=== PATIENT | male | born 1940 | race Caucasian/White ===

== ENCOUNTER 2016-06-29 17:05 | Inpatient (IN) | payer OTHER ==
[~2016-06-29] VITALS: Ht 172.7 cm; Wt 83.9 kg
[~2016-06-29 17:05] MED LIST: ADVAIR HFA120 INHALA IH; AMBIEN10 MG PO; ATENOLOL50 MG PO; BENADRYL25 MG PO; CENTRUM SILVER1 EAC3 PO; CLOTRIMAZOLE-BE15 GM TP; ESOMEPRAZOLE MA40 MG PO; FUROSEMIDE40 MG PO; GLIMEPIRIDE2 MG PO; GLUCOPHAGE500 MG PO; K-DUR20 MEQ PO; LASIX20 MG PO; LEVAQUIN500 MG PO; LEVOFLOXACIN750 MG PO; LOSARTAN POTASS50 MG PO; LOW DOSE ASPIRI81 M1 PO; MOTRIN IB200 MG PO; PREDNISONE50 MG PO; PROAIR HFA8.5 GM IH; VYTORIN 10/41 TABLET PO
[2016-06-29 17:48] LABS: HEMATOCRIT 40.6 % (38.0-50.0); MCH 22.7 PG (29.0-34.0); MCHC 28.6 G/DL (30.0-36.0); MCV 79.5 FL (86-99); MEAN PLAT.VOLUME 9.6 uM^3 (9.0-12.4); PLATELET COUNT 448 K/uL (156-360); RBC DIS.WIDTH-CV 19.3 % (11.8-14.6); RBC DIS.WIDTH-SD 53.2 % (39-53); RED BLOOD COUNT 5.11 M/uL (4.00-5.50); WHITE BLOOD COUNT 10.6 K/uL (4.1-10.2)
[2016-06-29 18:13] LABS: CHLORIDE 101 mEq/L (99-109); POTASSIUM 4.1 mEq/L (3.7-5.4); SODIUM 139 mEq/L (136-147)
[2016-06-29 18:15] LABS: GLUCOSE 73 mg/dL (70-99)
[2016-06-29 18:16] LABS: ANION GAP 12 MEQ/L (2-14)
[2016-06-29 18:19] LABS: GFR ESTIMATE (CALCULATED) > 59 mL/min/
[2016-06-29 18:20] LABS: UREA NITROGEN (BUN) 11 mg/dL (9-23)
[2016-06-29 19:44] LABS: TROP-I INTERPRETATION NEGATIVE; TROPONIN-I 0.05 ng/mL (0.0-0.30)
[2016-06-29] MEDS ORDERED: FUROSEMIDE40 MG PO (20:05)
[2016-06-29] MEDS ORDERED: KLOR-CON M2020 MEQ PO (20:05)
[2016-06-29] MEDS ORDERED: MIRTAZAPINE15 MG PO (20:06)
[2016-06-29 21:13] LABS: BASE EXCESS 5.9 mEq/L (-3 to +3); BICARBONATE 34.3 mEq/L (22-26); CARBOXY HGB 3.8 % (0-5); METHEMOGLOBIN 0.6 % (0-1.5); PCO2 73 mm Hg (35-45); PO2 78 mm Hg (80-100)
[2016-06-29 21:14] LABS: SITE RR; pH 7.28 (7.35-7.45)
[2016-06-29 21:15] LABS: COMMENTS - BLOOD GASES A+C+; DEVICE NC; O2 FLOW 2 L/MIN
[2016-06-29 22:29] LABS: BASE EXCESS 3.7 mEq/L (-3 to +3); BICARBONATE 31.7 mEq/L (22-26); CARBOXY HGB 2.2 % (0-5); METHEMOGLOBIN 0.9 % (0-1.5)
[2016-06-29 22:30] LABS: COMMENTS - BLOOD GASES A+C+; FI02 21 %; PCO2 66 mm Hg (35-45); PO2 57 mm Hg (80-100); SITE LR; pH 7.29 (7.35-7.45)
[2016-06-29 23:27] LABS: ADD MIUA? YES; BILIRUBIN NEGATIVE; BLOOD NEGATIVE; COLOR YELLOW ((YELLOW)); GLUCOSE (STRIP) NEGATIVE; KETONES NEGATIVE; LEUKOCYTES NEGATIVE; NITRITE NEGATIVE; PROTEIN (STRIP) 30; SPECIFIC GRAVITY 1.014 (1.000-1.030); UROBILINOGEN 0.2 MG/DL (0.2-1.0)
[2016-06-29 23:35] LABS: BACTERIA NONE SEEN /HPF; EPITHELIAL CELLS NONE SEEN /HPF; HYALINE CASTS 0-5 /LPF; MUCUS TRACE /LPF; RED BLOOD CELLS 0-5 /HPF (0-5); UCUL ADDED? NO; WHITE BLOOD CELLS 0-5 /HPF (0-5)
[2016-06-30] VITALS (24 sets, daily range): BP systolic 90–144; BP diastolic 44–76
[2016-06-30 01:06] LABS: BASE EXCESS 4.6 mEq/L (-3 to +3); BICARBONATE 32.5 mEq/L (22-26); CARBOXY HGB 2.1 % (0-5); METHEMOGLOBIN 1.4 % (0-1.5); PCO2 66 mm Hg (35-45); PO2 62 mm Hg (80-100)
[2016-06-30 01:07] LABS: SITE LR
[2016-06-30 01:08] LABS: DEVICE NC; O2 FLOW 1 L/MIN
[2016-06-30 02:03] LABS: METH RESISTANT S AUREUS PCR NEGATIVE (NEGATIVE)
[2016-06-30 02:12] LABS: PROBE CHECK PASS; SPECIMEN PROCESSING CONTROL PASS
[2016-06-30 05:53] LABS: POINT-OF-CARE METER ID UU13113803; POINT-OF-CARE USER ID PHATLC
[2016-06-30 06:25] LABS: INTER. NORMALIZED RATIO 1.1; PROTHROMBIN TIME 11.4 (9.2-11.2); PTT 30.8 (25-32)
[2016-06-30 06:28] LABS: ANION GAP 10 MEQ/L (2-14); CHLORIDE 103 MEQ/L (99-109); MAGNESIUM 1.9 mg/dl (1.3-2.7); POTASSIUM 4.2 MEQ/L (3.7-5.4); SAMPLE HEMOLYSIS CHECK 0; SAMPLE ICTERIC CHECK 0; SAMPLE LIPEMIA CHECK 0; SODIUM 143 MEQ/L (136-147); TOTAL BILIRUBIN 0.2 MG/DL (0.0-1.0)
[2016-06-30 06:33] LABS: ALKALINE PHOSPHATASE 60 IU/L (3-129); GFR ESTIMATE (CALCULATED) > 59 mL/min/; GLUCOSE 86 mg/dL (70-99); UREA NITROGEN (BUN) 11 mg/dL (9-23)
[2016-06-30 06:51] LABS: EOSINOPHIL (%) 0.3 % (0-5); HEMATOCRIT 38.3 % (38.0-50.0); IMMATURE GRANULOCYTE (%) 0.7 % (0.0-0.7); IMMATURE GRANULOCYTE COUNT 0.1 K/uL; INSTRUMENT ABS NEUTROPHIL CT 8.3 K/uL; LYMPHOCYTE COUNT 0.9 K/uL (1.0-2.8); MCH 22.8 PG (29.0-34.0); MCHC 27.9 G/DL (30.0-36.0); MCV 81.5 FL (86-99); MONOCYTE COUNT 0.3 K/uL (0-0.8); NEUTROPHIL (%) 86.7 % (45-76); NEUTROPHIL COUNT 8.3 K/uL (1.8-6.4); PLATELET COUNT 372 K/uL (156-360); RBC DIS.WIDTH-CV 18.7 % (11.8-14.6); RBC DIS.WIDTH-SD 54.7 % (39-53); WHITE BLOOD COUNT 9.6 K/uL (4.1-10.2)
[2016-06-30 12:52] LABS: POINT-OF-CARE METER ID UU13113803
[2016-06-30 13:46] LABS: BASE EXCESS 2.2 mEq/L (-3 to +3); BICARBONATE 30.7 mEq/L (22-26); COMMENTS - BLOOD GASES A+C+; DEVICE 840; FI02 50 %; MECHANICAL RATE 14 resp/min; METHEMOGLOBIN 1.6 % (0-1.5); MODE N/V SIMV; PCO2 70 mm Hg (35-45); PEEP 5 CM/H20; PO2 103 mm Hg (80-100); PRES. SUPPORT 15 CM/H2O; SITE LR; TOTAL RESP RATE 17 resp/min
[2016-06-30 13:47] LABS: pH 7.25 (7.35-7.45)
[2016-06-30 15:10] LABS: COMMENTS - BLOOD GASES A+C+; DEVICE 840; FI02 50 %; MECHANICAL RATE 20 resp/min; METHEMOGLOBIN 1.5 % (0-1.5); MODE N/V SIMV; PCO2 74 mm Hg (35-45); PEEP 5 CM/H20; PO2 77 mm Hg (80-100); PRES. SUPPORT 20 CM/H2O; SITE LR; TIDAL VOLUME 400 ML; TOTAL RESP RATE 20 resp/min; pH 7.23 (7.35-7.45)
[2016-06-30 17:54] LABS: POINT-OF-CARE METER ID UU13113803
[2016-06-30 20:26] LABS: BASE EXCESS 1.4 mEq/L (-3 to +3); BICARBONATE 28.3 mEq/L (22-26); METHEMOGLOBIN 1.9 % (0-1.5); PCO2 55 mm Hg (35-45); PO2 55 mm Hg (80-100); pH 7.32 (7.35-7.45)
[2016-06-30 20:27] LABS: COMMENTS - BLOOD GASES C+A+; DEVICE NC; O2 FLOW 2 L/MIN; SITE RR; TOTAL RESP RATE 20 resp/min
[2016-07-01] VITALS (18 sets, daily range): BP systolic 75–139; BP diastolic 35–78
[2016-07-01 00:40] LABS: POINT-OF-CARE METER ID UU13113803; POINT-OF-CARE USER ID PHATLC
[2016-07-01 05:32] LABS: POINT-OF-CARE METER ID UU13113803; POINT-OF-CARE USER ID PHATLC
[2016-07-01 06:40] LABS: ANION GAP 8 MEQ/L (2-14); CHLORIDE 102 MEQ/L (99-109); GFR ESTIMATE (CALCULATED) > 59 mL/min/; MAGNESIUM 1.9 mg/dl (1.3-2.7); SAMPLE HEMOLYSIS CHECK 0; SAMPLE ICTERIC CHECK 0; SAMPLE LIPEMIA CHECK 0; SODIUM 139 MEQ/L (136-147); UREA NITROGEN (BUN) 12 mg/dL (9-23)
[2016-07-01 06:41] LABS: GLUCOSE 200 mg/dL (70-99); POTASSIUM 3.3 MEQ/L (3.7-5.4)
[2016-07-01 07:15] LABS: HEMATOCRIT 37.2 % (38.0-50.0); MCH 22.5 PG (29.0-34.0); MCHC 28.8 G/DL (30.0-36.0); MCV 78.3 FL (86-99); NRBC (%) 0.3 /100 WBC (0-0); RBC DIS.WIDTH-CV 18.8 % (11.8-14.6); RBC DIS.WIDTH-SD 53.1 % (39-53); RED BLOOD COUNT 4.75 M/uL (4.00-5.50)
[2016-07-01 07:24] LABS: WHITE BLOOD COUNT 6.1 K/uL (4.1-10.2)
[2016-07-01 07:53] LABS: MEAN PLAT.VOLUME 10.6 uM^3 (9.0-12.4); PLATELET COUNT 234 K/uL (156-360)
[2016-07-01 11:21] LABS: POINT-OF-CARE METER ID UU13113803
[2016-07-01 16:16] LABS: TYPE OF FLUID PLEURAL
[2016-07-01 16:28] LABS: POINT-OF-CARE METER ID UU13113803
[2016-07-01 16:58] LABS: BODY FLUID LDH 63 IU/L
[2016-07-01 17:03] LABS: BODY FLUID EOSINOPHILS 0 % (0-25); BODY FLUID RBC'S 1000 /MM^3 (0-100); BODY FLUID WBC'S 1629 /MM^3 (0-500); MONONUCLEAR WBC'S 91 %; POLYNUCLEAR WBC'S 9 % (0-25)
[2016-07-01 22:36] LABS: POINT-OF-CARE METER ID UU13113803
[2016-07-02] VITALS: BP 115/48
[2016-07-02 02:00] VITALS: BP 154/97
[2016-07-02 05:43] LABS: HEMATOCRIT 36.4 % (38.0-50.0); MCH 22.6 PG (29.0-34.0); MCHC 28.3 G/DL (30.0-36.0); MEAN PLAT.VOLUME 10.4 uM^3 (9.0-12.4); RBC DIS.WIDTH-CV 19.1 % (11.8-14.6); RBC DIS.WIDTH-SD 54.4 % (39-53); RED BLOOD COUNT 4.55 M/uL (4.00-5.50)
[2016-07-02 05:44] LABS: PLATELET COUNT 354 K/uL (156-360); WHITE BLOOD COUNT 8.4 K/uL (4.1-10.2)
[2016-07-02 06:12] LABS: ANION GAP 10 MEQ/L (2-14); CHLORIDE 101 MEQ/L (99-109); GFR ESTIMATE (CALCULATED) > 59 mL/min/; MAGNESIUM 1.9 mg/dl (1.3-2.7); SAMPLE HEMOLYSIS CHECK 0; SAMPLE ICTERIC CHECK 0; SAMPLE LIPEMIA CHECK 0; SODIUM 139 MEQ/L (136-147); UREA NITROGEN (BUN) 15 mg/dL (9-23)
[2016-07-02 06:13] LABS: GLUCOSE 116 mg/dL (70-99); POTASSIUM 4.5 MEQ/L (3.7-5.4)
[2016-07-02 08:00] VITALS: BP 134/68
[2016-07-02 11:00] VITALS: BP 128/83
[2016-07-02 16:00] VITALS: BP 120/54
[2016-07-02 20:00] VITALS: BP 113/49
[2016-07-03] VITALS (8 sets, daily range): BP systolic 112–141; BP diastolic 47–79
[2016-07-03 00:17] LABS: POINT-OF-CARE METER ID UU14174217
[2016-07-03 03:37] LABS: BODY FLUID PH 7.9 (())
[2016-07-03 05:47] LABS: HEMATOCRIT 38.3 % (38.0-50.0); MCH 22.5 PG (29.0-34.0); MCHC 28.2 G/DL (30.0-36.0); MCV 79.8 FL (86-99); MEAN PLAT.VOLUME 10.7 uM^3 (9.0-12.4); PLATELET COUNT 367 K/uL (156-360); RBC DIS.WIDTH-CV 19.4 % (11.8-14.6); RBC DIS.WIDTH-SD 55.1 % (39-53); WHITE BLOOD COUNT 8.6 K/uL (4.1-10.2)
[2016-07-03 06:12] LABS: ANION GAP 6 MEQ/L (2-14); CHLORIDE 98 MEQ/L (99-109); GFR ESTIMATE (CALCULATED) > 59 mL/min/; GLUCOSE 124 mg/dL (70-99); MAGNESIUM 2.1 mg/dl (1.3-2.7); POTASSIUM 4.2 MEQ/L (3.7-5.4); SAMPLE HEMOLYSIS CHECK 0; SAMPLE ICTERIC CHECK 0; SAMPLE LIPEMIA CHECK 0; SODIUM 139 MEQ/L (136-147); UREA NITROGEN (BUN) 19 mg/dL (9-23)
[2016-07-03 11:50] LABS: POINT-OF-CARE METER ID UU13113803
[2016-07-03 16:51] LABS: POINT-OF-CARE METER ID UU13113803
[2016-07-03 19:25] LABS: INFLUENZA A VIRAL ANTIGEN NEGATIVE; INFLUENZA B VIRAL ANTIGEN NEGATIVE
[2016-07-04 04:32] VITALS: BP 111/61
[2016-07-04 06:00] LABS: HEMATOCRIT 38.1 % (38.0-50.0); MCH 22.7 PG (29.0-34.0); MCHC 28.6 G/DL (30.0-36.0); MCV 79.4 FL (86-99); MEAN PLAT.VOLUME 10.5 uM^3 (9.0-12.4); PLATELET COUNT 366 K/uL (156-360); RBC DIS.WIDTH-CV 19.2 % (11.8-14.6); RBC DIS.WIDTH-SD 54.1 % (39-53); WHITE BLOOD COUNT 8.5 K/uL (4.1-10.2)
[2016-07-04 06:31] LABS: MAGNESIUM 2.2 mg/dl (1.3-2.7)
[2016-07-04 07:44] VITALS: BP 134/78
[2016-07-04 07:55] LABS: POINT-OF-CARE METER ID UU14174216
[2016-07-04 11:49] VITALS: BP 156/74
[2016-07-04 12:18] LABS: POINT-OF-CARE METER ID UU14174216
[2016-07-04 15:31] VITALS: BP 143/69
[2016-07-04 19:45] VITALS: BP 135/64
[2016-07-04 23:36] VITALS: BP 127/60
[2016-07-05 04:35] VITALS: BP 145/73
[2016-07-05 07:28] VITALS: BP 149/69
[2016-07-05 07:42] LABS: POINT-OF-CARE METER ID UU14174216; POINT-OF-CARE USER ID NUTSLF44
[2016-07-05 11:27] LABS: POINT-OF-CARE USER ID NUTSLF44
[2016-07-05 11:44] VITALS: BP 114/64
[2016-07-05 16:03] VITALS: BP 105/57
[2016-07-05 16:52] LABS: POINT-OF-CARE METER ID UU14174216
[2016-07-05 20:00] VITALS: BP 108/64
[2016-07-05 23:32] VITALS: BP 155/74
[2016-07-06 03:09] VITALS: BP 106/57
[2016-07-06 05:59] LABS: POINT-OF-CARE METER ID UU13113725
[2016-07-06 07:45] VITALS: BP 123/58
[2016-07-06 11:20] LABS: POINT-OF-CARE METER ID UU13113725
[2016-07-06 15:44] VITALS: BP 121/57
[2016-07-06 16:36] LABS: POINT-OF-CARE METER ID UU13113725
[2016-07-06 20:55] LABS: POINT-OF-CARE METER ID UU13113725
[2016-07-06 22:30] VITALS: BP 150/65
[2016-07-07 06:10] LABS: POINT-OF-CARE METER ID UU13113725
[2016-07-07 07:20] VITALS: BP 136/63
[2016-07-07 11:50] LABS: POINT-OF-CARE METER ID UU13113725
[2016-07-07] MEDS ORDERED: DUONEB 2.5-0.5 M3 ML AEROSOL (16:25)
[2016-07-07] MEDS ORDERED: CITALOPRAM HBR10 MG PO (16:27)
[2016-07-07] MEDS ORDERED: DOCUSATE SODIU100 MG PO (16:28)
[2016-07-07] MEDS ORDERED: PREDNISONE10 M1 PO (16:30)
[2016-07-07 17:04] VITALS: BP 134/67
[2016-07-08 00:15] VITALS: BP 149/65
[2016-07-08 07:06] LABS: EOSINOPHIL (%) 2.4 % (0-5); EOSINOPHIL COUNT 0.2 K/uL (0-0.3); HEMATOCRIT 34.6 % (38.0-50.0); IMMATURE GRANULOCYTE (%) 0.6 % (0.0-0.7); IMMATURE GRANULOCYTE COUNT 0.1 K/uL; INSTRUMENT ABS NEUTROPHIL CT 6.1 K/uL; LYMPHOCYTE COUNT 1.9 K/uL (1.0-2.8); MCH 23.1 PG (29.0-34.0); MCHC 29.5 G/DL (30.0-36.0); MCV 78.3 FL (86-99); MEAN PLAT.VOLUME 10.6 uM^3 (9.0-12.4); MONOCYTE (%) 7.8 % (3-12); MONOCYTE COUNT 0.7 K/uL (0-0.8); NEUTROPHIL (%) 68.1 % (45-76); NEUTROPHIL COUNT 6.1 K/uL (1.8-6.4); NRBC (%) 0.3 /100 WBC (0-0); PLATELET COUNT 317 K/uL (156-360); RBC DIS.WIDTH-CV 19.3 % (11.8-14.6); RED BLOOD COUNT 4.42 M/uL (4.00-5.50); WHITE BLOOD COUNT 8.9 K/uL (4.1-10.2)
[2016-07-08 07:10] VITALS: BP 81/50
[2016-07-08 07:36] LABS: ANION GAP 7 MEQ/L (2-14); CHLORIDE 97 MEQ/L (99-109); GFR ESTIMATE (CALCULATED) > 59 mL/min/; GLUCOSE 71 mg/dL (70-99); POTASSIUM 4.4 MEQ/L (3.7-5.4); SAMPLE HEMOLYSIS CHECK 0; SAMPLE ICTERIC CHECK 0; SAMPLE LIPEMIA CHECK 0; SODIUM 140 MEQ/L (136-147); UREA NITROGEN (BUN) 23 mg/dL (9-23)
[2016-07-08 09:00] VITALS: BP 130/70
[2016-07-08 11:23] LABS: POINT-OF-CARE METER ID UU13113725
== END 2016-07-08 14:04 | disposition home or self-care (01) | DRG 190 ==
LOC: EME 17:05 → EDOF 23:18 → 4EAST 23:18 → 4WEST 23:18 → 4EAST 07-03 23:47 → 5EAST 07-05 22:03
PROVIDERS: Emergency Medicine; Family Medicine; Family Medicine Sports Medicine; Internal Medicine; Internal Medicine Pulmonary Disease; Obstetrics & Gynecology
PROC: 0W9B3ZX Drainage of Left Pleural Cavity, Percutaneous Approach, Diagnostic (ICD-10-PCS; principal; 2016-07-01)
DX: J44.0 Chronic obstructive pulmonary disease with (acute) lower respiratory infection (principal); J18.9 Pneumonia, unspecified organism; J96.22 Acute and chronic respiratory failure with hypercapnia; J44.1 Chronic obstructive pulmonary disease with (acute) exacerbation; G71.0 Muscular dystrophy; I10 Essential (primary) hypertension; E11.9 Type 2 diabetes mellitus without complications; E78.5 Hyperlipidemia, unspecified; J96.21 Acute and chronic respiratory failure with hypoxia; Z99.3 Dependence on wheelchair; J98.11 Atelectasis; Z87.891 Personal history of nicotine dependence; E66.9 Obesity, unspecified; Z68.29 Body mass index [BMI] 29.0-29.9, adult; J90 Pleural effusion, not elsewhere classified
CPT/HCPCS: 36600; 70450; 71010; 71020; 71275; 76604; 80048; 80048 91; 80053; 81003; 82565; 82803; 82945; 82948; 83605; 83615 91; 83735; 83880; 83986 90; 84100; 84157; 84484; 84520; 85025; 85027; 85610; 85730; 87040; 87070; 87075; 87205; 87502; 87641; 88108; 88305; 89051; 93005; 94002; 94003; 94010; 94640; 94640 76; 94660; 94667; 94668; 94760; 94799; 99202; 99281; 99285; C9113; J0456; J0696; J1650; J1815; J2920; J2930; J7030; J7050; J7120; J7512

== ENCOUNTER 2016-07-22 02:11 | Inpatient (IN) | payer OTHER ==
[~2016-07-22] VITALS: Ht 172.7 cm; Wt 79.5 kg
[~2016-07-22 02:11] MED LIST changes: +CITALOPRAM HBR10 MG PO; +DOCUSATE SODIU100 MG PO; +DUONEB 2.5-0.5 M3 ML AEROSOL; +KLOR-CON M2020 MEQ PO; +MIRTAZAPINE15 MG PO; +PREDNISONE10 M1 PO
[2016-07-22 03:04] LABS: EOSINOPHIL (%) 0.5 % (0-5); EOSINOPHIL COUNT 0.1 K/uL (0-0.3); HEMATOCRIT 33.7 % (38.0-50.0); IMMATURE GRANULOCYTE (%) 0.7 % (0.0-0.7); IMMATURE GRANULOCYTE COUNT 0.1 K/uL; INSTRUMENT ABS NEUTROPHIL CT 13.3 K/uL; LYMPHOCYTE COUNT 0.9 K/uL (1.0-2.8); MCH 23.6 PG (29.0-34.0); MCV 78.7 FL (86-99); MEAN PLAT.VOLUME 9.2 uM^3 (9.0-12.4); MONOCYTE (%) 5.6 % (3-12); MONOCYTE COUNT 0.9 K/uL (0-0.8); NEUTROPHIL (%) 87.1 % (45-76); NEUTROPHIL COUNT 13.3 K/uL (1.8-6.4); PLATELET COUNT 269 K/uL (156-360); RBC DIS.WIDTH-CV 20.1 % (11.8-14.6); RED BLOOD COUNT 4.28 M/uL (4.00-5.50); WHITE BLOOD COUNT 15.2 K/uL (4.1-10.2)
[2016-07-22 03:05] LABS: CHLORIDE 100 mEq/L (99-109); SODIUM 137 mEq/L (136-147)
[2016-07-22 03:07] LABS: GLUCOSE 117 mg/dL (70-99)
[2016-07-22 03:08] LABS: ANION GAP 11 MEQ/L (2-14)
[2016-07-22 03:10] LABS: GFR ESTIMATE (CALCULATED) > 59 mL/min/
[2016-07-22 03:11] LABS: UREA NITROGEN (BUN) 16 mg/dL (9-23)
[2016-07-22 03:20] LABS: TROP-I INTERPRETATION NEGATIVE; TROPONIN-I 0.02 ng/mL (0.0-0.30)
[2016-07-22 07:30] VITALS: BP 130/62
[2016-07-22 08:43] LABS: CHLORIDE 101 mEq/L (99-109); POTASSIUM 4.8 mEq/L (3.7-5.4); SODIUM 138 mEq/L (136-147)
[2016-07-22 08:44] LABS: MAGNESIUM 2.2 mg/dL (1.3-2.7)
[2016-07-22 08:45] LABS: GLUCOSE 136 mg/dL (70-99)
[2016-07-22 08:46] LABS: ANION GAP 10 MEQ/L (2-14)
[2016-07-22 08:49] LABS: GFR ESTIMATE (CALCULATED) > 59 mL/min/
[2016-07-22 08:50] LABS: UREA NITROGEN (BUN) 11 mg/dL (9-23)
[2016-07-22 08:52] LABS: TROP-I INTERPRETATION NEGATIVE; TROPONIN-I 0.02 ng/mL (0.0-0.30)
[2016-07-22 09:17] LABS: POINT-OF-CARE METER ID UU14162513
[2016-07-22 12:58] LABS: POINT-OF-CARE METER ID UU13113819
[2016-07-22 16:26] VITALS: BP 121/59
[2016-07-22 16:30] LABS: POINT-OF-CARE METER ID UU13113781
[2016-07-22 17:03] LABS: HEMATOCRIT 34.2 % (38.0-50.0); MCH 23.4 PG (29.0-34.0); MCHC 29.8 G/DL (30.0-36.0); MCV 78.4 FL (86-99); MEAN PLAT.VOLUME 10.1 uM^3 (9.0-12.4); PLATELET COUNT 281 K/uL (156-360); RBC DIS.WIDTH-SD 56.4 % (39-53); RED BLOOD COUNT 4.36 M/uL (4.00-5.50)
[2016-07-22 17:04] LABS: WHITE BLOOD COUNT 7.7 K/uL (4.1-10.2)
[2016-07-22 17:05] LABS: CHLORIDE 100 mEq/L (99-109); SODIUM 138 mEq/L (136-147)
[2016-07-22 17:07] LABS: POTASSIUM 3.4 mEq/L (3.7-5.4)
[2016-07-22 17:08] LABS: GLUCOSE 144 mg/dL (70-99)
[2016-07-22 17:09] LABS: ANION GAP 12 MEQ/L (2-14)
[2016-07-22 17:10] LABS: TOTAL BILIRUBIN 0.3 mg/dL (0.0-1.0)
[2016-07-22 17:11] LABS: ALKALINE PHOSPHATASE 46 IU/L (3-129); GFR ESTIMATE (CALCULATED) > 59 mL/min/
[2016-07-22 17:12] LABS: UREA NITROGEN (BUN) 8 mg/dL (9-23)
[2016-07-22 17:19] LABS: TROP-I INTERPRETATION NEGATIVE; TROPONIN-I 0.02 ng/mL (0.0-0.30)
[2016-07-22 20:00] VITALS: BP 95/54
[2016-07-22 23:00] VITALS: BP 98/56
[2016-07-23 03:00] VITALS: BP 105/52
[2016-07-23 08:09] LABS: POINT-OF-CARE METER ID UU14174216
[2016-07-23 09:21] VITALS: BP 107/67
[2016-07-23] MEDS ORDERED: DUONEB 2.5-0.5 M3 ML AEROSOL ×2 (10:50→17:00)
[2016-07-23 11:37] LABS: POINT-OF-CARE METER ID UU13113781
[2016-07-23 12:08] VITALS: BP 89/45
[2016-07-23 16:18] LABS: POINT-OF-CARE METER ID UU13113781
[2016-07-23] MEDS ORDERED: NITROSTAT0.4 MG SL (17:01)
[2016-07-23] MEDS ORDERED: NITROGLYCERIN1 EAC1 TD (17:01)
[2016-07-23] MEDS ORDERED: PANTOPRAZOLE SO40 MG PO (17:03)
[2016-07-23] MEDS ORDERED: LOSARTAN POTASS50 MG PO (18:53)
== END 2016-07-23 19:20 | disposition home or self-care (01) | DRG 287 ==
LOC: EME → EDBD 02:11 → EDOF 04:25 → 5WEST 04:25 → EDOF 04:25 → 5WEST 07:17 → 4EAST 12:49 → 5WEST 12:49 → 4EAST 16:03
PROVIDERS: Emergency Medicine; Family Medicine Sports Medicine; Hospitalist; Internal Medicine; Physician Assistant
DX: I25.110 Atherosclerotic heart disease of native coronary artery with unstable angina pectoris (principal); I25.82 Chronic total occlusion of coronary artery; J90 Pleural effusion, not elsewhere classified; J44.9 Chronic obstructive pulmonary disease, unspecified; G71.0 Muscular dystrophy; E11.9 Type 2 diabetes mellitus without complications; R09.02 Hypoxemia; I10 Essential (primary) hypertension; E78.5 Hyperlipidemia, unspecified; K21.9 Gastro-esophageal reflux disease without esophagitis; I48.0 Paroxysmal atrial fibrillation; R91.8 Other nonspecific abnormal finding of lung field; Z66 Do not resuscitate; Z53.20 Procedure and treatment not carried out because of patient's decision for unspecified reasons; Z87.891 Personal history of nicotine dependence; Z79.82 Long term (current) use of aspirin; Z79.84 Long term (current) use of oral hypoglycemic drugs; Z99.3 Dependence on wheelchair
CPT/HCPCS: 71010; 71275; 80048; 80048 91; 80053; 82948; 83735; 84484; 85025; 85027; 93005; 94640; 94799; 99202; 99281; 99285; C1769; C1894; J1644; J2250; J3010

== ENCOUNTER 2017-10-07 11:40 | Inpatient (IN) | payer OTHER ==
[~2017-10-07] VITALS: Ht 177.8 cm; Wt 70.0 kg
[~2017-10-07 11:40] MED LIST changes: +AMARYL1 MG PO; -GLIMEPIRIDE2 MG PO; +NITROGLYCERIN1 EAC1 TD; +NITROSTAT0.4 MG SL; +PANTOPRAZOLE SO40 MG PO
[2017-10-07 12:31] LABS: CHLORIDE 91 mEq/L (99-109); SODIUM 139 mEq/L (136-147)
[2017-10-07 12:32] LABS: MAGNESIUM 1.8 mg/dL (1.3-2.7)
[2017-10-07 12:33] LABS: POTASSIUM 5.4 mEq/L (3.7-5.4)
[2017-10-07 12:34] LABS: GLUCOSE 101 mg/dL (70-99)
[2017-10-07 12:37] LABS: CREATININE 0.4 mg/dL (0.6-1.3); GFR ESTIMATE (CALCULATED) > 59 mL/min/ (58.99-99999)
[2017-10-07 12:38] LABS: UREA NITROGEN (BUN) 15 mg/dL (9-23)
[2017-10-07 12:43] LABS: TROP-I INTERPRETATION NEGATIVE; TROPONIN-I 0.04 ng/mL (0.0-0.30)
[2017-10-07 12:45] LABS: INTER. NORMALIZED RATIO 1.1
[2017-10-07 12:48] LABS: PTT 20.3 SEC (25-37)
[2017-10-07 12:59] LABS: HEMATOCRIT 46.4 % (38.0-50.0); HEMOGLOBIN 14.6 G/DL (12.5-16.6); MCH 28.3 PG (29.0-34.0); MCHC 31.5 G/DL (30.0-36.0); MCV 89.9 FL (86-99); RBC DIS.WIDTH-CV 14.7 % (11.8-14.6); RBC DIS.WIDTH-SD 49.1 % (39-53); RED BLOOD COUNT 5.16 M/uL (4.00-5.50); WHITE BLOOD COUNT 12.5 K/uL (4.1-10.2)
[2017-10-07 13:38] LABS: BASOPHIL (%) 0.1 % (0-1); EOSINOPHIL (%) 0.6 % (0-5); EOSINOPHIL COUNT 0.1 K/uL (0-0.3); HEMATOLOGY COMMENT 1 SN; IMMATURE GRANULOCYTE (%) 0.5 % (0.0-0.7); LYMPHOCYTE (%) 3.4 % (15-42); LYMPHOCYTE COUNT 0.4 K/uL (1.0-2.8); MONOCYTE (%) 2.2 % (3-12); MONOCYTE COUNT 0.3 K/uL (0-0.8); NEUTROPHIL (%) 93.2 % (45-76); NEUTROPHIL COUNT 11.7 K/uL (1.8-6.4); PLAT.SUFFICIENCY ADEQUATE; PLATELET COUNT 372 K/uL (156-360)
[2017-10-07 19:47] VITALS: BP 109/58
[2017-10-07 23:54] VITALS: BP 110/69
[2017-10-08 03:39] VITALS: BP 118/70
[2017-10-08 05:51] LABS: HEMATOCRIT 41.9 % (38.0-50.0); HEMOGLOBIN 12.9 G/DL (12.5-16.6); MCH 28.3 PG (29.0-34.0); MCHC 30.8 G/DL (30.0-36.0); MCV 91.9 FL (86-99); PLATELET COUNT 377 K/uL (156-360); RBC DIS.WIDTH-CV 14.9 % (11.8-14.6); RBC DIS.WIDTH-SD 50.3 % (39-53); RED BLOOD COUNT 4.56 M/uL (4.00-5.50); WHITE BLOOD COUNT 8.6 K/uL (4.1-10.2)
[2017-10-08 06:18] LABS: CHLORIDE 96 MEQ/L (99-109); CREATININE 0.2 MG/DL (0.6-1.3); GFR ESTIMATE (CALCULATED) > 59 mL/min/ (58.99-99999); POTASSIUM 4.5 MEQ/L (3.7-5.4); SODIUM 139 MEQ/L (136-147); UREA NITROGEN (BUN) 16 mg/dL (9-23)
[2017-10-08 06:21] LABS: GLUCOSE 62 mg/dL (70-99)
[2017-10-08 07:10] VITALS: BP 107/61
[2017-10-08 08:45] LABS: ALBUMIN 3.3 G/DL (3.2-4.8); ALKALINE PHOSPHATASE 51 IU/L (3-129); ALT (GPT) 21 IU/L (3-49); AST (GOT) 17 IU/L (2-34); DIRECT BILIRUBIN 0.1 mg/dL (0.0-0.3); TOTAL BILIRUBIN 0.2 MG/DL (0.0-1.0); TOTAL PROTEIN 5.6 G/DL (6.4-8.3)
[2017-10-08 13:53] VITALS: BP 122/68
[2017-10-08 15:48] LABS: TYPE OF FLUID PLEURAL
[2017-10-08 16:24] LABS: BODY FLUID GLUCOSE 141 MG/DL; BODY FLUID LDH 98 IU/L
[2017-10-08 16:42] LABS: APPEARANCE CLEAR-YELLOW; BODY FLUID EOSINOPHILS 0 % (0-25); BODY FLUID RBC'S 1000 /MM^3 (0-100); BODY FLUID WBC'S 651 /MM^3 (0-500); MONONUCLEAR WBC'S 61 %; POLYNUCLEAR WBC'S 39 % (0-25)
[2017-10-08 16:49] VITALS: BP 136/72
[2017-10-08 20:08] VITALS: BP 123/63
[2017-10-09 04:35] VITALS: BP 117/74
[2017-10-09 07:46] VITALS: BP 133/67
[2017-10-09 11:35] LABS: LACTATE DEHYDROGENASE 247 IU/L (20-246)
[2017-10-09 12:00] VITALS: BP 138/66
[2017-10-09] MEDS ORDERED: DUONEB 2.5-0.5 M3 ML AEROSOL ×2 (14:49→15:01)
[2017-10-09] MEDS ORDERED: COZAAR50 MG PO (14:51)
[2017-10-09] MEDS ORDERED: TOPROL XL50 MG PO (14:52)
[2017-10-09] MEDS ORDERED: SYSTANE 0.3-0.1 EACH BOTH EYES (14:56)
[2017-10-09] MEDS ORDERED: SENEXON-S TABL1 EACH PO (14:57)
[2017-10-09] MEDS ORDERED: IRON325 M1 PO (14:58)
[2017-10-09] MEDS ORDERED: ADVAIR 250/501 DISK IH (14:59)
[2017-10-09] MEDS ORDERED: PATANOL OP100 DROP/5 BOTH EYES (15:02)
[2017-10-09] MEDS ORDERED: CELEXA10 MG PO (15:03)
[2017-10-09] MEDS ORDERED: MUCINEX600 MG PO (15:05)
[2017-10-09] MEDS ORDERED: DELTASONE20 M1 PO (15:07)
[2017-10-09] MEDS ORDERED: CEFTIN500 MG PO (15:09)
[2017-10-09 15:10] VITALS: BP 131/65
[2017-10-09] MEDS ORDERED: LIPITOR20 MG PO (15:12)
[2017-10-09] MEDS ORDERED: MELATONIN5 M1 PO (15:12)
[2017-10-09] MEDS ORDERED: OMEPRAZOLE40 M1 PO (15:14)
[2017-10-09] MEDS ORDERED: MILK OF MAGN PO (15:17)
[2017-10-09] MEDS ORDERED: FLEET ENEMA EX230 ML PR (15:18)
[2017-10-09] MEDS ORDERED: DULCOLAX10 MG PR (15:18)
[2017-10-09] MEDS ORDERED: BIOTENE PBF473 ML MM (15:20)
[2017-10-09] MEDS ORDERED: CEPACOL SORE T1 EAC9 MM (15:21)
[2017-10-09] MEDS ORDERED: TYLENOL EXTRA500 MG PO (15:24)
[2017-10-09] MEDS ORDERED: TESSALON200 MG PO (15:26)
[2017-10-09 19:44] VITALS: BP 127/67
[2017-10-10 00:51] VITALS: BP 146/74
[2017-10-10 04:16] VITALS: BP 124/71
[2017-10-10 06:38] LABS: TROP-I INTERPRETATION NEGATIVE; TROPONIN-I 0.04 ng/mL (0.0-0.30)
[2017-10-10 07:53] VITALS: BP 107/62
[2017-10-10 08:28] LABS: BASOPHIL (%) 0.2 % (0-1); EOSINOPHIL (%) 2.3 % (0-5); EOSINOPHIL COUNT 0.2 K/uL (0-0.3); HEMATOCRIT 41.5 % (38.0-50.0); HEMOGLOBIN 12.6 G/DL (12.5-16.6); IMMATURE GRANULOCYTE (%) 0.3 % (0.0-0.7); LYMPHOCYTE (%) 14.2 % (15-42); LYMPHOCYTE COUNT 1.3 K/uL (1.0-2.8); MCH 28.1 PG (29.0-34.0); MCHC 30.4 G/DL (30.0-36.0); MCV 92.6 FL (86-99); MONOCYTE (%) 7.5 % (3-12); MONOCYTE COUNT 0.7 K/uL (0-0.8); NEUTROPHIL (%) 75.5 % (45-76); NEUTROPHIL COUNT 6.9 K/uL (1.8-6.4); PLATELET COUNT 332 K/uL (156-360); RBC DIS.WIDTH-SD 51.2 % (39-53); RED BLOOD COUNT 4.48 M/uL (4.00-5.50); WHITE BLOOD COUNT 9.1 K/uL (4.1-10.2)
[2017-10-10 08:55] LABS: CHLORIDE 99 MEQ/L (99-109); CREATININE 0.3 MG/DL (0.6-1.3); GFR ESTIMATE (CALCULATED) > 59 mL/min/ (58.99-99999); POTASSIUM 3.6 MEQ/L (3.7-5.4); SODIUM 142 MEQ/L (136-147); UREA NITROGEN (BUN) 10 mg/dL (9-23)
[2017-10-10 08:56] LABS: GLUCOSE 96 mg/dL (70-99)
[2017-10-10 15:52] VITALS: BP 109/65
[2017-10-10 18:57] VITALS: BP 124/70
[2017-10-10 23:50] VITALS: BP 118/71
[2017-10-11] VITALS (7 sets, daily range): BP systolic 114–131; BP diastolic 51–93
[2017-10-12 06:25] LABS: HEMATOCRIT 37.5 % (38.0-50.0); HEMOGLOBIN 11.4 G/DL (12.5-16.6); MCHC 30.4 G/DL (30.0-36.0); MCV 92.1 FL (86-99); PLATELET COUNT 326 K/uL (156-360); RBC DIS.WIDTH-CV 14.8 % (11.8-14.6); RBC DIS.WIDTH-SD 50.3 % (39-53); RED BLOOD COUNT 4.07 M/uL (4.00-5.50); WHITE BLOOD COUNT 8.4 K/uL (4.1-10.2)
[2017-10-12 07:01] LABS: CHLORIDE 95 MEQ/L (99-109); CREATININE 0.2 MG/DL (0.6-1.3); GFR ESTIMATE (CALCULATED) > 59 mL/min/ (58.99-99999); GLUCOSE 117 mg/dL (70-99); SODIUM 137 MEQ/L (136-147); UREA NITROGEN (BUN) 8 mg/dL (9-23)
[2017-10-12 07:02] VITALS: BP 126/77
[2017-10-12 07:02] LABS: POTASSIUM 4.4 MEQ/L (3.7-5.4)
[2017-10-12] MEDS ORDERED: AMOX TR-K CLV1 EAC4 PO (07:59)
[2017-10-12 15:16] VITALS: BP 115/58
[2017-10-13] VITALS: BP 130/83
[2017-10-13 05:39] LABS: HEMATOCRIT 40.7 % (38.0-50.0); HEMOGLOBIN 12.3 G/DL (12.5-16.6); MCH 27.6 PG (29.0-34.0); MCHC 30.2 G/DL (30.0-36.0); MCV 91.5 FL (86-99); PLATELET COUNT 282 K/uL (156-360); RBC DIS.WIDTH-CV 14.8 % (11.8-14.6); RBC DIS.WIDTH-SD 49.8 % (39-53); RED BLOOD COUNT 4.45 M/uL (4.00-5.50); WHITE BLOOD COUNT 7.4 K/uL (4.1-10.2)
[2017-10-13 06:11] LABS: CHLORIDE 97 MEQ/L (99-109); CREATININE 0.2 MG/DL (0.6-1.3); GFR ESTIMATE (CALCULATED) > 59 mL/min/ (58.99-99999); GLUCOSE 126 mg/dL (70-99); POTASSIUM 3.9 MEQ/L (3.7-5.4); SODIUM 138 MEQ/L (136-147); UREA NITROGEN (BUN) 7 mg/dL (9-23)
[2017-10-13 07:56] VITALS: BP 121/76
[2017-10-13 15:32] VITALS: BP 131/78
== END 2017-10-13 18:15 | DRG 189 ==
LOC: EME 11:40 → 5SOUTH 16:26 → EDOF 16:26 → ENRESERV 16:39 → 5SOUTH 18:04
PROVIDERS: Emergency Medicine; Hospitalist; Internal Medicine; Internal Medicine Pulmonary Disease; Physician Assistant
PROC: 0BBG3ZX Excision of Left Upper Lung Lobe, Percutaneous Approach, Diagnostic (ICD-10-PCS; principal; 2017-10-11)
PROC: 0TB03ZX Excision of Right Kidney, Percutaneous Approach, Diagnostic (ICD-10-PCS; 2017-10-12)
PROC: 0W9B3ZX Drainage of Left Pleural Cavity, Percutaneous Approach, Diagnostic (ICD-10-PCS; 2017-10-12)
DX: J96.01 Acute respiratory failure with hypoxia (principal); R91.8 Other nonspecific abnormal finding of lung field; J90 Pleural effusion, not elsewhere classified; C64.1 Malignant neoplasm of right kidney, except renal pelvis; J44.0 Chronic obstructive pulmonary disease with (acute) lower respiratory infection; J18.9 Pneumonia, unspecified organism; I48.0 Paroxysmal atrial fibrillation; G71.0 Muscular dystrophy; E11.649 Type 2 diabetes mellitus with hypoglycemia without coma; I47.1 Supraventricular tachycardia; Z99.3 Dependence on wheelchair; I10 Essential (primary) hypertension; Z82.49 Family history of ischemic heart disease and other diseases of the circulatory system; Z83.3 Family history of diabetes mellitus; E78.5 Hyperlipidemia, unspecified; Y95 Nosocomial condition; Z87.891 Personal history of nicotine dependence; J98.11 Atelectasis; R26.9 Unspecified abnormalities of gait and mobility; Z66 Do not resuscitate; K21.9 Gastro-esophageal reflux disease without esophagitis; R79.1 Abnormal coagulation profile
CPT/HCPCS: 36415; 70553; 71045; 71275; 74177; 76942; 77012; 80048; 80048 91; 80076; 80202; 82945; 82947 91; 82948; 83605; 83615; 83615 91; 83735; 83880; 84155; 84157; 84484; 85025; 85025 91; 85027; 85379; 85610; 85730; 86850; 86900; 86901; 87040; 87070; 87075; 87116; 87205; 87206; 88108; 88305; 88341 TC; 88342 TC; 89051; 93005; 94640; 94760; 94799; 99281; 99285; A6214; J0153; J1650; J2543; J3010; J3370; J3475; J7050

== ENCOUNTER 2017-10-19 14:42 | Inpatient (IN) | payer OTHER ==
[~2017-10-19] VITALS: Ht 172.7 cm; Wt 86.7 kg
[~2017-10-19 14:42] MED LIST changes: +ADVAIR 250/501 DISK IH; +AMOX TR-K CLV1 EAC4 PO; +BIOTENE PBF473 ML MM; +CEFTIN500 MG PO; +CELEXA10 MG PO; +CEPACOL SORE T1 EAC9 MM; +COZAAR50 MG PO; +DELTASONE20 M1 PO; +DULCOLAX10 MG PR; +FLEET ENEMA EX230 ML PR; +IRON325 M1 PO; +LIPITOR20 MG PO; +MELATONIN5 M1 PO; +MILK OF MAGN PO; +MUCINEX600 MG PO; +OMEPRAZOLE40 M1 PO; +PATANOL OP100 DROP/5 BOTH EYES; +SENEXON-S TABL1 EACH PO; +SYSTANE 0.3-0.1 EACH BOTH EYES; +TESSALON200 MG PO; +TOPROL XL50 MG PO; +TYLENOL EXTRA500 MG PO
[2017-10-19 15:22] LABS: HEMATOCRIT 43.5 % (38.0-50.0); HEMOGLOBIN 13.4 G/DL (12.5-16.6); MCHC 30.8 G/DL (30.0-36.0); RBC DIS.WIDTH-CV 14.9 % (11.8-14.6); RED BLOOD COUNT 4.78 M/uL (4.00-5.50); WHITE BLOOD COUNT 16.6 K/uL (4.1-10.2)
[2017-10-19 15:24] LABS: PLATELET COUNT 480 K/uL (156-360)
[2017-10-19 15:29] LABS: INTER. NORMALIZED RATIO 1.1
[2017-10-19 15:32] LABS: PTT 30.1 SEC (25-37)
[2017-10-19 15:34] LABS: ALBUMIN 3.7 g/dL (3.2-4.8); CHLORIDE 92 mEq/L (99-109); POTASSIUM 3.8 mEq/L (3.7-5.4); SODIUM 137 mEq/L (136-147)
[2017-10-19 15:35] LABS: MAGNESIUM 1.4 mg/dL (1.3-2.7)
[2017-10-19 15:37] LABS: GLUCOSE 107 mg/dL (70-99); TOTAL PROTEIN 6.7 g/dL (6.4-8.3)
[2017-10-19 15:39] LABS: TOTAL BILIRUBIN 0.3 mg/dL (0.0-1.0)
[2017-10-19 15:40] LABS: ALKALINE PHOSPHATASE 64 IU/L (3-129); CREATININE 0.5 mg/dL (0.6-1.3); GFR ESTIMATE (CALCULATED) > 59 mL/min/ (58.99-99999); SERUM ETHYL ALCOHOL < 10 mg/dL
[2017-10-19 15:41] LABS: UREA NITROGEN (BUN) 10 mg/dL (9-23)
[2017-10-19 15:42] LABS: AST (GOT) 25 IU/L (2-34)
[2017-10-19 15:43] LABS: ALT (GPT) 24 IU/L (3-49)
[2017-10-19 15:44] LABS: LIPASE 31 U/L (1.0-51.0); TROP-I INTERPRETATION NEGATIVE; TROPONIN-I 0.05 ng/mL (0.0-0.30)
[2017-10-19 16:27] LABS: THYROTROPIN (TSH) 4.4 MIU/L (0.4-5.5)
[2017-10-19] MEDS ORDERED: FLEET ENEMA-AD118 ML PR (19:27)
[2017-10-19 19:43] LABS: AMPHETAMINE NEGATIVE (500 ng/mL); BARBITURATES NEGATIVE (200 ng/mL); BENZODIAZEPINES NEGATIVE (150 ng/mL); COCAINE NEGATIVE (150 ng/mL); METHADONE NEGATIVE (200 ng/mL); METHAMPHETAMINE NEGATIVE (500 ng/mL); OPIATES (MORPHINE) NEGATIVE (100 ng/mL); PHENCYCLIDINE NEGATIVE (25 ng/mL); THC CANNABINOIDS NEGATIVE (50 ng/mL); TRICYCLIC ANTIDEPRESSANTS NEGATIVE (300 ng/mL)
[2017-10-19 19:44] LABS: BUPRENORPHINE NEGATIVE (10 ng/mL); OXYCODONE NEGATIVE (100 ng/mL); PROPOXYPHENE NEGATIVE (300 ng/mL)
[2017-10-19 22:46] LABS: APPEARANCE CLEAR ((CLEAR)); BILIRUBIN NEGATIVE; BLOOD NEGATIVE; COLOR YELLOW ((YELLOW)); GLUCOSE (STRIP) NEGATIVE; KETONES NEGATIVE; LEUKOCYTES NEGATIVE; NITRITE NEGATIVE; PROTEIN (STRIP) NEGATIVE; SPECIFIC GRAVITY 1.044 (1.000-1.030); UCUL ADDED? NO; UROBILINOGEN 0.2 MG/DL (0.2-1.0)
[2017-10-19 23:01] VITALS: BP 96/54
[2017-10-20 02:19] LABS: TROP-I INTERPRETATION NEGATIVE; TROPONIN-I 0.12 ng/mL (0.0-0.30)
[2017-10-20 03:00] VITALS: BP 110/58
[2017-10-20 06:58] LABS: BASOPHIL (%) 0.2 % (0-1); EOSINOPHIL (%) 0.3 % (0-5); HEMATOCRIT 40.8 % (38.0-50.0); IMMATURE GRANULOCYTE (%) 0.6 % (0.0-0.7); LYMPHOCYTE (%) 7.5 % (15-42); LYMPHOCYTE COUNT 0.7 K/uL (1.0-2.8); MCH 27.6 PG (29.0-34.0); MCHC 29.4 G/DL (30.0-36.0); MCV 93.8 FL (86-99); MONOCYTE (%) 6.4 % (3-12); MONOCYTE COUNT 0.6 K/uL (0-0.8); NEUTROPHIL COUNT 8.3 K/uL (1.8-6.4); PLATELET COUNT 383 K/uL (156-360); RBC DIS.WIDTH-SD 52.1 % (39-53); RED BLOOD COUNT 4.35 M/uL (4.00-5.50); WHITE BLOOD COUNT 9.7 K/uL (4.1-10.2)
[2017-10-20 07:10] LABS: TROP-I INTERPRETATION NEGATIVE; TROPONIN-I 0.11 ng/mL (0.0-0.30)
[2017-10-20 07:31] LABS: CHLORIDE 100 MEQ/L (99-109); CREATININE < 0.2 MG/DL (0.6-1.3); GFR ESTIMATE (CALCULATED) > 59 mL/min/ (58.99-99999); GLUCOSE 59 mg/dL (70-99); POTASSIUM 4.1 MEQ/L (3.7-5.4); SODIUM 141 MEQ/L (136-147); UREA NITROGEN (BUN) 8 mg/dL (9-23)
[2017-10-20 08:25] VITALS: BP 129/68
[2017-10-20 11:18] VITALS: BP 133/60
[2017-10-20 16:28] LABS: TYPE OF FLUID PLEURAL
[2017-10-20 16:30] VITALS: BP 117/69
[2017-10-20 17:11] LABS: BODY FLUID LDH 104 IU/L; BODY FLUID PROTEIN < 3.0 G/DL
[2017-10-20 17:28] LABS: APPEARANCE SLIGHTLY CLOUDY; BODY FLUID EOSINOPHILS 0 % (0-25); BODY FLUID RBC'S 1000 /MM^3 (0-100); BODY FLUID WBC'S 745 /MM^3 (0-500); MONONUCLEAR WBC'S 53 %; POLYNUCLEAR WBC'S 47 % (0-25)
[2017-10-20 19:54] VITALS: BP 107/63
[2017-10-21] VITALS (7 sets, daily range): BP systolic 114–140; BP diastolic 56–82
[2017-10-21 06:38] LABS: HEMATOCRIT 42.8 % (38.0-50.0); HEMOGLOBIN 12.8 G/DL (12.5-16.6); MCH 27.6 PG (29.0-34.0); MCHC 29.9 G/DL (30.0-36.0); MCV 92.2 FL (86-99); PLATELET COUNT 355 K/uL (156-360); RBC DIS.WIDTH-SD 50.7 % (39-53); RED BLOOD COUNT 4.64 M/uL (4.00-5.50); WHITE BLOOD COUNT 9.8 K/uL (4.1-10.2)
[2017-10-21 07:00] LABS: CHLORIDE 97 MEQ/L (99-109); MAGNESIUM 1.1 mg/dl (1.3-2.7); SODIUM 138 MEQ/L (136-147); UREA NITROGEN (BUN) 9 mg/dL (9-23); VANCOMYCIN, TROUGH 19.3 MCG/ML (10-20)
[2017-10-21 07:01] LABS: CREATININE < 0.2 MG/DL (0.6-1.3); GFR ESTIMATE (CALCULATED) > 59 mL/min/ (58.99-99999); GLUCOSE 97 mg/dL (70-99); LACTATE DEHYDROGENASE 202 IU/L (20-246); POTASSIUM 3.1 MEQ/L (3.7-5.4)
[2017-10-21 17:01] LABS: BODY FLUID PH 7.8 (())
[2017-10-22 04:00] VITALS: BP 127/59
[2017-10-22 05:33] LABS: HEMATOCRIT 38.8 % (38.0-50.0); HEMOGLOBIN 11.7 G/DL (12.5-16.6); MCH 27.8 PG (29.0-34.0); MCHC 30.2 G/DL (30.0-36.0); MCV 92.2 FL (86-99); PLATELET COUNT 367 K/uL (156-360); RBC DIS.WIDTH-CV 15.1 % (11.8-14.6); RBC DIS.WIDTH-SD 50.7 % (39-53); RED BLOOD COUNT 4.21 M/uL (4.00-5.50); WHITE BLOOD COUNT 10.3 K/uL (4.1-10.2)
[2017-10-22 06:03] LABS: CHLORIDE 97 MEQ/L (99-109); GLUCOSE 103 mg/dL (70-99); SODIUM 141 MEQ/L (136-147); UREA NITROGEN (BUN) 9 mg/dL (9-23)
[2017-10-22 06:04] LABS: CREATININE < 0.2 MG/DL (0.6-1.3); GFR ESTIMATE (CALCULATED) > 59 mL/min/ (58.99-99999); MAGNESIUM 1.8 mg/dl (1.3-2.7); POTASSIUM 3.9 MEQ/L (3.7-5.4)
[2017-10-22 07:56] VITALS: BP 106/46
[2017-10-22 11:09] VITALS: BP 119/67
[2017-10-22 14:50] VITALS: BP 135/62
[2017-10-22 19:45] VITALS: BP 120/57
[2017-10-22 23:13] VITALS: BP 133/60
[2017-10-23] VITALS (7 sets, daily range): BP systolic 109–133; BP diastolic 49–73
[2017-10-23 05:02] LABS: HEMATOCRIT 38.2 % (38.0-50.0); HEMOGLOBIN 11.4 G/DL (12.5-16.6); MCH 27.5 PG (29.0-34.0); MCHC 29.8 G/DL (30.0-36.0); MCV 92.3 FL (86-99); PLATELET COUNT 352 K/uL (156-360); RBC DIS.WIDTH-CV 14.8 % (11.8-14.6); RBC DIS.WIDTH-SD 50.7 % (39-53); RED BLOOD COUNT 4.14 M/uL (4.00-5.50); WHITE BLOOD COUNT 10.4 K/uL (4.1-10.2)
[2017-10-23 06:05] LABS: CHLORIDE 94 MEQ/L (99-109); GLUCOSE 109 mg/dL (70-99); MAGNESIUM 1.7 mg/dl (1.3-2.7); POTASSIUM 3.4 MEQ/L (3.7-5.4); SODIUM 140 MEQ/L (136-147); UREA NITROGEN (BUN) 12 mg/dL (9-23)
[2017-10-23 06:10] LABS: CREATININE < 0.2 MG/DL (0.6-1.3); GFR ESTIMATE (CALCULATED) > 59 mL/min/ (58.99-99999)
[2017-10-24 03:55] VITALS: BP 118/58
[2017-10-24 06:02] LABS: HEMATOCRIT 38.2 % (38.0-50.0); HEMOGLOBIN 11.4 G/DL (12.5-16.6); MCH 27.8 PG (29.0-34.0); MCHC 29.8 G/DL (30.0-36.0); MCV 93.2 FL (86-99); PLATELET COUNT 372 K/uL (156-360); RBC DIS.WIDTH-SD 51.8 % (39-53); WHITE BLOOD COUNT 10.7 K/uL (4.1-10.2)
[2017-10-24 06:21] LABS: CHLORIDE 94 MEQ/L (99-109); CREATININE 0.3 MG/DL (0.6-1.3); GFR ESTIMATE (CALCULATED) > 59 mL/min/ (58.99-99999); GLUCOSE 91 mg/dL (70-99); MAGNESIUM 1.6 mg/dl (1.3-2.7); SODIUM 142 MEQ/L (136-147); UREA NITROGEN (BUN) 15 mg/dL (9-23)
[2017-10-24 08:20] VITALS: BP 130/61
[2017-10-24 11:35] VITALS: BP 126/72
[2017-10-24] MEDS ORDERED: CEFEPIME HCL2 GM IV (13:23)
[2017-10-24] MEDS ORDERED: ELIQUIS5 MG PO (13:23)
[2017-10-24] MEDS ORDERED: DIGOXIN125 MCG PO (13:24)
[2017-10-24] MEDS ORDERED: CARDIZEM60 MG PO (13:24)
[2017-10-24] MEDS ORDERED: NOVOLOG 10100 UNITS/ SC (13:26)
[2017-10-24 16:19] VITALS: BP 139/70
[2017-10-24 20:00] VITALS: BP 138/58
[2017-10-25] VITALS (7 sets, daily range): BP systolic 119–160; BP diastolic 60–88
[2017-10-25 06:43] LABS: BASOPHIL (%) 0.2 % (0-1); EOSINOPHIL (%) 0.2 % (0-5); HEMATOCRIT 41.4 % (38.0-50.0); HEMOGLOBIN 12.2 G/DL (12.5-16.6); IMMATURE GRANULOCYTE (%) 0.5 % (0.0-0.7); LYMPHOCYTE (%) 5.9 % (15-42); LYMPHOCYTE COUNT 0.6 K/uL (1.0-2.8); MCH 27.3 PG (29.0-34.0); MCHC 29.5 G/DL (30.0-36.0); MCV 92.6 FL (86-99); MONOCYTE (%) 6.8 % (3-12); MONOCYTE COUNT 0.7 K/uL (0-0.8); NEUTROPHIL (%) 86.4 % (45-76); NEUTROPHIL COUNT 8.6 K/uL (1.8-6.4); PLATELET COUNT 361 K/uL (156-360); RBC DIS.WIDTH-SD 51.3 % (39-53); RED BLOOD COUNT 4.47 M/uL (4.00-5.50)
[2017-10-25 07:12] LABS: CHLORIDE 93 MEQ/L (99-109); CREATININE 0.3 MG/DL (0.6-1.3); GFR ESTIMATE (CALCULATED) > 59 mL/min/ (58.99-99999); GLUCOSE 113 mg/dL (70-99); SODIUM 142 MEQ/L (136-147); UREA NITROGEN (BUN) 16 mg/dL (9-23)
[2017-10-25 11:38] LABS: APPEARANCE CLEAR ((CLEAR)); BILIRUBIN NEGATIVE; BLOOD MODERATE; COLOR YELLOW ((YELLOW)); GLUCOSE (STRIP) NEGATIVE; KETONES 5; LEUKOCYTES NEGATIVE; NITRITE NEGATIVE; PROTEIN (STRIP) 30; SPECIFIC GRAVITY 1.013 (1.000-1.030); UROBILINOGEN 0.2 MG/DL (0.2-1.0)
[2017-10-25 11:41] LABS: BACTERIA RARE /HPF; EPITHELIAL CELLS RARE /HPF; MUCUS TRACE /LPF; RED BLOOD CELLS 0-5 /HPF (0-5); WHITE BLOOD CELLS 0-5 /HPF (0-5)
[2017-10-26 03:51] VITALS: BP 126/78
[2017-10-26 08:16] VITALS: BP 150/69
[2017-10-26 11:50] VITALS: BP 124/68
[2017-10-26 15:44] VITALS: BP 130/74
[2017-10-26 19:53] VITALS: BP 137/80
[2017-10-27 00:01] VITALS: BP 135/75
[2017-10-27 03:41] VITALS: BP 129/72
[2017-10-27 07:30] VITALS: BP 125/76
[2017-10-27] MEDS ORDERED: ZOSYN 3.373.375 GM/5 IV (12:29)
[2017-10-27 16:27] VITALS: BP 109/52
== END 2017-10-27 16:53 | DRG 193 ==
LOC: EME 14:42 → 4EAST 20:48 → EDOF 20:48 → ENRESERV 20:50 → 4EAST 22:44 → ENRESERV 10-23 10:54 → 2EAST 10-23 13:32
PROVIDERS: Emergency Medicine; Hospitalist; Internal Medicine; Internal Medicine Cardiovascular Disease; Internal Medicine Medical Oncology
PROC: 0W9B3ZZ Drainage of Left Pleural Cavity, Percutaneous Approach (ICD-10-PCS; principal; 2017-10-20)
DX: J18.0 Bronchopneumonia, unspecified organism (principal); Y95 Nosocomial condition; J44.0 Chronic obstructive pulmonary disease with (acute) lower respiratory infection; G92 Toxic encephalopathy; T36.1X5A Adverse effect of cephalosporins and other beta-lactam antibiotics, initial encounter; J90 Pleural effusion, not elsewhere classified; I48.91 Unspecified atrial fibrillation; C34.12 Malignant neoplasm of upper lobe, left bronchus or lung; C64.1 Malignant neoplasm of right kidney, except renal pelvis; R06.03 Acute respiratory distress; G71.0 Muscular dystrophy; E11.649 Type 2 diabetes mellitus with hypoglycemia without coma; J98.11 Atelectasis; E87.6 Hypokalemia; F05 Delirium due to known physiological condition; H70.90 Unspecified mastoiditis, unspecified ear; Z66 Do not resuscitate; I10 Essential (primary) hypertension; I25.118 Atherosclerotic heart disease of native coronary artery with other forms of angina pectoris; I25.82 Chronic total occlusion of coronary artery; E78.5 Hyperlipidemia, unspecified; R26.9 Unspecified abnormalities of gait and mobility; K05.10 Chronic gingivitis, plaque induced; I49.3 Ventricular premature depolarization; I70.0 Atherosclerosis of aorta; K21.9 Gastro-esophageal reflux disease without esophagitis; H91.10 Presbycusis, unspecified ear; R47.01 Aphasia; F32.9 Major depressive disorder, single episode, unspecified; Z74.01 Bed confinement status; Z87.891 Personal history of nicotine dependence; Z99.3 Dependence on wheelchair; Z79.84 Long term (current) use of oral hypoglycemic drugs; Z79.82 Long term (current) use of aspirin
CPT/HCPCS: 31720; 70450; 71045; 71275; 74177; 76942; 80048; 80053; 80202; 81003; 82948; 83605; 83615; 83615 91; 83690; 83735; 83880; 83986 90; 84157; 84443; 84484; 85025; 85027; 85610; 85730; 86850; 86900; 86901; 87040; 87070; 87086; 87205; 87449; 87641; 88108; 88305; 89051; 92610 GN; 93005; 93306; 94640; 94760; 94799; 99281; 99285; G0480; J0692; J1160; J1644; J1815; J1956; J2405; J2543; J3370; J3475; J3480; J7030; J7050